=== PATIENT | male | born 1970 | race Caucasian/White ===

== ENCOUNTER 2022-05-04 04:24 | Emergency (ER) | payer OTHER, MEDICAID, SELFPAY ==
--- NOTE | 2022-05-04 04:37 | ED_ITS ---
HPI - General Adult General Stated complaint: parasites Time Seen by Provider: 05/04/22 04:26 Source: patient Mode of arrival: Ambulatory Limitations: no limitations History of Present Illness HPI narrative: Patient is a 51-year-old male who is here for evaluation of what he states is flies and worms coming from his skin. He states for the past several days he is had bumps with things that are coming out of that specifically in his scalp. He also has discoloration and bumps on his face. He is also having on his arms. He has tried [id number] bug killer and also ivermectin that he is purchased [id number]. Related Data Previous Rx's Medication Instructions Recorded ibuprofen 800 mg tablet 800 mg PO Q6HP PRN #60 tabs 11/13/15 diazepam 5 mg tablet (Valium) 5 mg PO Q8HP PRN #10 tabs 11/15/15 hydrocodone 5 mg-acetaminophen 325 1 tab PO Q6HP PRN #10 tabs 11/15/15 mg tablet ([place]) Review of Systems Integumentary/Breasts Skin/Breast: Reports system reviewed and no additional complaints, except as documented Exam Skin Other: Were a couple lesions noted on his arms but they were scabs. There were no lesions noted on his face or in his scalp. There were no parasites noted. Medical Decision Making MDM Narrative Medical decision making narrative: There were no bugs/flies/parasites/tics/worms/or other past noted on the skin. There are no signs of cellulitis. At 2 different times the patient stated that there were things crawling out of his skin and evaluation of those areas he was pointing did not reveal any parasite. I will send patient home with a specimen cup and if he can capture a parasite then we can send it to the lab however until then there is no indication for any medications. Provided reassurance Discharge Plan Departure Patient Disposition: Home Clinical Impression: Feared condition not demonstrated Activity Restrictions/Additional Instructions: I do recommend that you may contact with a primary doctor. Return to the emergency department for any worsening symptoms. Prescriptions: No Action ibuprofen 800 MG tablet 800 mg PO Q6HP PRNQty: 60 0RF hydrocodone-acetaminophen [[place]] 5 MG/325 MG tablet 1 tab PO Q6HP PRNQty: 10 0RF diazepam [Valium] 5 MG tablet 5 mg PO Q8HP PRNQty: 10 0RF Stand Alone Forms: Patient Portal/API
[2022-05-04 04:40] VITALS: BP 169/104; PULSE 92; RESP 18; TEMP 36.6; O2SAT 99; BMI 28.5
== END 2022-05-04 05:00 | disposition home or self-care (01) ==
PROVIDERS: Emergency Provider Emergency Medicine
DX: R21 Rash and other nonspecific skin eruption (principal)
CPT/HCPCS: 99281